=== PATIENT | male | born 1955 | race Asian ===

== ENCOUNTER 2018-04-17 17:58 | Inpatient (IN) | payer MEDICAID ==
[~2018-04-17] VITALS: Ht 170.2 cm; Wt 60.5 kg
[2018-04-17 18:05] VITALS: Ht 170.2 cm; Wt 60.5 kg
[2018-04-17 18:46] LABS: CALCIUM 8.9 mg/dL (8.5-10.1); CHLORIDE SERUM 102 mmol/L (98-107); CREATININE SERUM 1.1 mg/dL (0.7-1.3); GFR1 > 60 mL/min; GLUCOSE SERUM 289 mg/dL (74-106); POTASSIUM SERUM 4.2 mmol/L (3.5-5.1); SODIUM SERUM 139 mmol/L (136-145)
[2018-04-17 18:50] LABS: ALBUMIN 3.5 g/dL (3.4-5.0); ALKALINE PHOSPHATASE 88 U/L (46-116); AST/SGOT 10 U/L (15-37); TOTAL PROTEIN, SERUM 7.3 g/dL (6.4-8.2)
[2018-04-17 19:11] LABS: BASOPHIL % 0.6 % (0-2); PLATELET COUNT 226 x10^3mcL (130-400); RED CELL DISTRIBUTION WIDTH 13.9 % (11.5-14.5)
[2018-04-17 19:12] LABS: ALT/SGPT 13 U/L (16-63)
[2018-04-17] MEDS ORDERED: JANUMET 50-1,01 EACH PO (19:32)
[2018-04-17] MEDS ORDERED: GLIPIZIDE10 M2 PO (19:32)
[2018-04-17] MEDS ORDERED: JARDIANCE10 MG PO (19:33)
[2018-04-17 20:08] VITALS: BP 120/64
[2018-04-17 20:08] LABS: PHOSPHOROUS 3.7 mg/dL (2.5-4.9)
[2018-04-17 20:14] LABS: T3 TOTAL 1.02 ng/mL
[2018-04-17 20:16] LABS: FREE T4 1.18 ng/dL (0.76-1.46); FREE THYROXINE INDEX 2.7 ug/dL (1.4-4.5); T4(THYROXINE) 8.4 ug/dL (4.7-13.3)
[2018-04-18 02:19] LABS: microscopic required? NO
[2018-04-18 02:41] LABS: UA SPECIFIC GRAVITY 1.025 (1.005-1.035); urine erythrocyte NEGATIVE (NEGATIVE)
[2018-04-18 02:49] LABS: AMPHETAMINE QUAL UR NONE DETECTED (See below)
[2018-04-18 05:35] VITALS: BP 105/53
[2018-04-18 06:03] LABS: BASOPHIL % 0.5 % (0-2); PLATELET COUNT 195 x10^3mcL (130-400); RED CELL DISTRIBUTION WIDTH 13.9 % (11.5-14.5)
[2018-04-18 06:12] LABS: CALCIUM 8.1 mg/dL (8.5-10.1); CARBON DIOXIDE 26.5 mmol/L (21-32); CHLORIDE SERUM 106 mmol/L (98-107); CREATININE SERUM 0.7 mg/dL (0.7-1.3); GFR1 > 60 mL/min; GLUCOSE SERUM 132 mg/dL (74-106); POTASSIUM SERUM 3.8 mmol/L (3.5-5.1); SODIUM SERUM 141 mmol/L (136-145)
[2018-04-18 08:50] VITALS: BP 102/43
[2018-04-18 13:43] VITALS: BP 122/71
[2018-04-18 13:53] VITALS: BP 122/71
== END 2018-04-18 14:15 | disposition home or self-care (01) | DRG 243 ==
LOC: ED 17:58 → DU 19:20
PROVIDERS: Emergency Medicine; General Practice
DX: K21.9 Gastro-esophageal reflux disease without esophagitis (principal); N17.0 Acute kidney failure with tubular necrosis; E11.65 Type 2 diabetes mellitus with hyperglycemia; D68.69 Other thrombophilia; E11.51 Type 2 diabetes mellitus with diabetic peripheral angiopathy without gangrene; Z79.899 Other long term (current) drug therapy; Z68.20 Body mass index [BMI] 20.0-20.9, adult; F17.210 Nicotine dependence, cigarettes, uncomplicated; Z79.84 Long term (current) use of oral hypoglycemic drugs
CPT/HCPCS: 82962; 83880; 84439; J7030; Q0092